=== PATIENT | female | born 2000 | race Two or more races ===

== ENCOUNTER 2021-10-24 21:15 | Emergency (ER) | payer SELFPAY ==
[~2021-10-24] VITALS: Ht 147.3 cm; Wt 85.7 kg
[2021-10-24] MEDS ORDERED: DIPHTH,PERTUSS(ACELL),TET TOX 0.5 ML DISP.SYRIN. VAX IM ONE (22:15)
[2021-10-24] MEDS ORDERED: IBUPROFEN 400 MG TABLET. PO ONE (22:15)
[2021-10-24] MEDS ORDERED: [UNRECOGNIZED DRUG - CODE] TP (22:19)
[2021-10-24] MEDS ORDERED: AMOX1TAB61 PO (22:19)
--- NOTE | 2021-10-24 22:21 | PHYS DOC ---
Past Medical History Past Medical History: No Pertinent History Past Surgical History: No Surgical History General Adult EDM: Chief Complaint: ANIMAL BITE HPI: HPI: Patient is a 21 year old female who presents with multiple cat scratches and cat bites to her left leg. Patient states she was walking down the steps at her apartment complex, when one of the neighbors cats started hissing at her in the stairwell. She attempted to get around the cat, when it jumped at her and attacked her leg. Patient cleaned the wounds at home with rubbing alcohol and applied Band-Aids. She states that the pain is "throbbing" around the areas where she was bitten. Patient has not had a tetanus vaccination in the last 5 years. She has no other complaints at this time. Review of Systems: Review of Systems: ROS negative or noncontributory except as mentioned in HPI. Heart Score: C/O Chest Pain: No Allergies: Allergies: Allergies Coded Allergies Type Severity Reaction Last Updated Verified No Known Drug Allergies 10/24/21 No Physical Exam: PE: Constitutional: No acute distress, non-toxic appearance. HENT: Normocephalic, atraumatic, bilateral external ears normal, nose normal. Eyes: EOMI, conjunctiva normal, no discharge. Neck: Normal range of motion, no stridor. Skin: 6 puncture wounds noted to the anterior aspect of the left thigh with multiple scratches extending from the proximal thigh down to the ankle of the left lower extremity. Skin otherwise warm, dry, no erythema, no rash. Extremities: No cyanosis, no clubbing, ROM intact, no edema. Neurologic: Alert and oriented x4, normal motor function, normal sensory function, no focal deficits noted. Current Patient Data: Vital Signs: Vital Signs Date Time Temp Pulse Resp B/P (MAP) Pulse Ox O2 Delivery O2 Flow Rate FiO2 10/24/21 22:59 91 18 134/72 (92) 98 10/24/21 21:20 98.0 100 18 153/75 (101) 98 98.0 Course & Med Decision Making: Course & Med Decision Making Pertinent Labs and Imaging studies reviewed. (See chart for details) Patient is a 21-year-old female who presents with multiple cat bites and multiple cat scratches. Tetanus vaccination will be updated today in the department. Discussed risk versus benefit of rabies vaccination and immunoglobulin administration. Patient declines at this time. Wound care instruction and return precautions were provided to the patient. Patient understands and is agreeable to discharge plan. Dragon Disclaimer: Dragon Disclaimer: This electronic medical record was generated, in whole or in part, using a voice recognition dictation system. Departure Departure Impression: Primary Impression: Cat bite of left thigh Qualified Codes: S71.152A - Open bite, left thigh, initial encounter; W55.01XA - Bitten by cat, initial encounter Additional Impression: Cat scratch of multiple sites Disposition: HOME / SELF CARE / HOMELESS Condition: STABLE Referrals: UNKNOWN PCP NAME (PCP) Patient Instructions: Animal Bite, [id number], Wound Care, [id number] Additional Instructions: EMERGENCY DEPARTMENT GENERAL DISCHARGE INSTRUCTIONS Thank you for coming to [facility] Emergency Department (ED) today and trusting us with you care. We trust that you had a positive experience in our Emergency Department. If you wish to speak to the department management, you may call the director at . YOUR FOLLOW UP INSTRUCTIONS ARE FOLLOWS: 1. Follow up with your primary care doctor. If you do not have a primary doctor, please ask for a resource list of physicians or clinics that may be able to assist you with follow up care. 2. The emergency provider has interpreted your imaging studies, if any were ordered. The radiology imaging engineer also reviewed them. If there is a change in the findings, you will be notified in 48 hours when at all possible. 3. If a lab test or culture has been done, your results will be reviewed and you will be notified if you need a change in treatment. 4. Follow instructions verbalized to you and refer to the printouts if needed. ADDITIONAL INSTRUCTIONS AND INFORMATION: 1. Your care today has been supervised by a physician who is specially trained in emergency care. Many problems require more than one evaluation for a complete diagnosis and treatment. We recommend that you schedule your follow up appointment as recommended to ensure complete treatment of you illness or injury. If you are unable to obtain follow up care and continue to have a problem, or if your condition worsens, we recommend that you return to the ED. 2. We are not able to safely determine your condition over the phone nor are we able to give sound medical advice over the phone. For these safety reasons, if you call for medical advice we will ask you to come to the ED for further evaluation. 3. If you have any questions regarding these discharge instructions please call the ED at . SAFETY INFORMATION: In the interest of safety, wellness, and injury prevention; we encourage you to wear your seat belt, if you smoke; quite smoking, and we encourage family to use a protective helmet for bicycling and other sporting events that present an increased risk for head injury. IF YOUR SYMPTOMS WORSEN OR NEW SYMPTOMS DEVELOP, OR YOU HAVE CONCERNS ABOUT YOUR CONDITION; OR IF YOUR CONDITION WORSENS WHILE YOU ARE WAITING FOR YOUR FOLLOW UP APPOINTMENT; EITHER CONTACT YOUR PRIMARY CARE DOCTOR, THE PHYSICIAN WHOSE NAME AND NUMBER YOU WERE GIVEN, OR RETURN TO THE ED IMMEDIATELY. Scripts Amoxicillin/Potassium Clav (AUGMENTIN 875-125 TABLET) 1 Each Tablet 1 TAB PO BID for 5 Days, #10 TAB 0 Refills Prov: CARON ENGLISH 10/24/21 Lidocaine Hcl/Benzalk Chl (BACTINE PAIN RELIEVING SPRAY) 150 Ml [place] 1 SPRAY TP PRN QID PRN for PAIN, #1 BOT Prov: CARON ENGLISH 10/24/21 CARON ENGLISH October 24, 2021 22:21
[2021-10-24 22:59] VITALS: BP 134/72
== END 2021-10-24 23:00 | disposition home or self-care (01) ==
LOC: ER 21:15
DX: S71.152A Open bite, left thigh, initial encounter (principal); W55.01XA Bitten by cat, initial encounter; Y93.01 Activity, walking, marching and hiking; Y92.89 Other specified places as the place of occurrence of the external cause; Y99.8 Other external cause status
CPT/HCPCS: 90471; 90715; 99283-25